=== PATIENT | female | born 2005 | race Caucasian/White ===

== ENCOUNTER 2023-06-04 11:31 | Inpatient (IN) | payer OTHER ==
[2023-06-04 11:51] VITALS: BMI 24.0
[2023-06-04] MEDS ORDERED: MAGNESIUM HYDROX 2400MG/30ML ORAL SUSPENSION 30 ML CUP PO PRN (12:08)
[2023-06-04] MEDS ORDERED: POLYETHYLENE GLYCOL (HEALTHYLAX) 3350 17 GM PACKET PO PRN (12:08)
[2023-06-04] MEDS ORDERED: DICYCLOMINE HCL 10 MG CAPSULE PO PRN (12:08)
[2023-06-04] MEDS ORDERED: BENZOCAINE/MENTHOL (CHLORASEPTIC ) LOZENGE MM PRN (12:08)
[2023-06-04] MEDS ORDERED: METHOCARBAMOL 500 MG TABLET PO PRN (12:08)
[2023-06-04] MEDS ORDERED: MAG HYDROX/AL HYDROX/SIMETH 30 ML UNIT-DOSE CUP PO PRN (12:08)
[2023-06-04] MEDS ORDERED: NALOXONE HCL (KLOXXADO) 8 MG SPRAY NS PRN (12:08)
[2023-06-04] MEDS ORDERED: IBUPROFEN 600 MG TABLET (FP) PO PRN (12:08)
[2023-06-04] MEDS ORDERED: ACETAMINOPHEN 325 MG TABLET (FP) PO PRN (12:08)
[2023-06-04] MEDS ORDERED: ONDANSETRON *ODT* 4 MG TABLET SL PRN (12:08)
[2023-06-04] MEDS ORDERED: BISMUTH SUBSALICYLATE 524 MG/30 ML PO PRN (12:08)
[2023-06-04] MEDS ORDERED: hydrOXYzine PAMOATE 25 MG CAPSULE (FP) PO PRN (12:08)
[2023-06-04] MEDS ORDERED: IBUPROFEN 400 MG TABLET (FP) PO PRN (12:08)
[2023-06-04] MEDS ORDERED: guaiFENesin 600 MG TABLET.ER (FP) PO PRN (12:08)
[2023-06-04] MEDS ORDERED: NALOXONE HCL 0.4 MG/ML VIAL IM PRN (12:08)
[2023-06-04] MEDS ORDERED: LOPERAMIDE HCL 2 MG CAPSULE PO PRN (12:08)
[2023-06-04] MEDS ORDERED: BENZONATATE 200 MG CAPSULE PO PRN (12:08)
[2023-06-04] MEDS ORDERED: PRENATAL VITAMINS W/ FOLIC ACID TABLET (FP) PO ONE (13:01)
[2023-06-04] MEDS: PRENATAL VITAMINS W/ FOLIC ACID TABLET (FP) PO SCH (13:03)
[2023-06-04 16:53] LABS: HEMATOCRIT 40.9 % (32.4-45.2); HEMOGLOBIN 14.3 GM/dL (10.7-15.3); MEAN CELL VOLUME 91.4 fl (80-96); PLATELET COUNT 214 10^3/uL (134-434); RBC 4.47 M/mm3 (3.60-5.2); RDW 13.6 % (11.6-15.6); WHITE BLOOD COUNT 6.1 K/mm3 (4.0-10.0)
[2023-06-04 16:54] LABS: POTASSIUM 4.6 mmol/L (3.5-5.1)
[2023-06-04 16:59] LABS: CALCIUM 9.5 mg/dL (8.5-10.1)
[2023-06-04 17:00] LABS: ALBUMIN 4.4 g/dl (3.4-5.0); BLOOD UREA NITROGEN 14.4 mg/dL (7-18)
[2023-06-04 17:02] LABS: CREATININE 0.8 mg/dL (0.55-1.3)
[2023-06-04 17:04] LABS: BILIRUBIN,TOTAL 0.6 mg/dL (0.2-1)
[2023-06-04] MEDS ORDERED: COLLOIDAL OATMEAL 1 BAR EACH TP PRN (18:18)
[2023-06-04] MEDS ORDERED: THIAMINE HCL 100 MG TABLET (FP) PO SCH (22:00)
[2023-06-04] MEDS ORDERED: MELATONIN 5 MG TABLETS PO SCH (22:00)
[2023-06-05] MEDS: PRENATAL VITAMINS W/ FOLIC ACID TABLET (FP) PO SCH (10:23)
[2023-06-05 12:41] VITALS: BP 112/65; PULSE 68; RESP 18; TEMP 97.7
== END 2023-06-05 14:00 | disposition home or self-care (01) | DRG 775 ==
LOC: YASAS 11:31 → Y6N 12:28
PROVIDERS: ADMIT Allergy & Immunology; ATTEND Surgery
PROC: HZ2ZZZZ Detoxification Services for Substance Abuse Treatment (ICD-10-PCS; principal; 2023-06-04)
DX: F10.24 Alcohol dependence with alcohol-induced mood disorder (principal); F10.20 Alcohol dependence, uncomplicated; F12.20 Cannabis dependence, uncomplicated; F17.210 Nicotine dependence, cigarettes, uncomplicated; F10.282 Alcohol dependence with alcohol-induced sleep disorder; F53.0 Postpartum depression; F41.9 Anxiety disorder, unspecified
CPT/HCPCS: 36415; 80053; 81025; 85027; 86780; 87635; 87811